=== PATIENT | female | born 1955 | race Caucasian/White ===

== ENCOUNTER → 2017-05-26 | Outpatient (CLI) | payer BC, OTHER ==
--- NOTE | 2017-05-27 11:12 | MM ---
Reason for exam: screening (asymptomatic). Last mammogram was performed 1 year ago. History: Patient is postmenopausal. Family history of breast cancer in mother at age 82 and breast cancer in grandmother at age 75. Physical Findings: A clinical breast exam by your physician is recommended on an annual basis and results should be correlated with mammographic findings. MG Screening Mammo w CAD Bilateral CC and MLO view(s) were taken. Prior study comparison: May 19, 2016, bilateral MG screening mammo w CAD. May 13, 2015, right breast MG 3d work up w/cad RT. The breast tissue is heterogeneously dense. This may lower the sensitivity of mammography. There is no discrete abnormality. No significant changes when compared with prior studies. ASSESSMENT: Negative, BI-RAD 1 RECOMMENDATION: Routine screening mammogram of both breasts in 1 year.
== END | disposition home or self-care (01) ==
LOC: RADMAMWWP 13:22
PROVIDERS: ATTEND Obstetrics & Gynecology
DX: Z12.31 Encounter for screening mammogram for malignant neoplasm of breast (principal)
CPT/HCPCS: 77067

== ENCOUNTER → 2018-11-14 | Outpatient (CLI) | payer MEDICARE ==
--- NOTE | 2018-11-16 10:02 | MM ---
Reason for exam: screening (asymptomatic). Last mammogram was performed 1 year and 6 months ago. History: Patient is postmenopausal. Family history of breast cancer in mother at age 82 and breast cancer in grandmother at age 75. Physical Findings: A clinical breast exam by your physician is recommended on an annual basis and results should be correlated with mammographic findings. MG Screening Mammo w CAD Bilateral CC and MLO view(s) were taken. Prior study comparison: May 26, 2017, bilateral MG screening mammo w CAD. May 19, 2016, bilateral MG screening mammo w CAD. Focal asymmetry, stable, right upper outer quadrant middle position. No significant changes when compared with prior studies. ASSESSMENT: Benign, BI-RAD 2 RECOMMENDATION: Routine screening mammogram of both breasts in 1 year.
== END | disposition home or self-care (01) ==
LOC: RADMAMWWP 16:18
PROVIDERS: ATTEND Obstetrics & Gynecology
DX: Z12.31 Encounter for screening mammogram for malignant neoplasm of breast (principal)
CPT/HCPCS: 77067

== ENCOUNTER → 2019-01-01 | Outpatient (CLI) | payer MEDICARE ==
--- NOTE | 2019-01-01 15:27 | US ---
EXAMINATION TYPE: US kidneys/renal and bladder DATE OF EXAM: 01/01/2019 COMPARISON: No previous CLINICAL HISTORY: R94.4 decreased GFR. Decreased GFR, patient states no other symptoms EXAM MEASUREMENTS: Right Kidney: 9.6 x 4.9 x 5.4 cm Left Kidney: 9.4 x 4.7 x 4.9 cm Right Kidney: 0.4cm echogenic focus inferior pole Left Kidney: fullness of renal pelvis, 1.7cm cystic area inferior pole, 0.4cm mid pole Bladder: wnl Bilateral Jets seen: yes IMPRESSION: 1. Nonobstructing right-sided nephrolithiasis. 2. Renal cystic changes left kidney. Nonspecific fullness of the left renal pelvis.
== END | disposition home or self-care (01) ==
LOC: RADUSWWP 14:50
PROVIDERS: ATTEND Family Medicine
DX: N20.0 Calculus of kidney (principal); N28.1 Cyst of kidney, acquired
CPT/HCPCS: 76770

== ENCOUNTER → 2020-10-22 | Outpatient (CLI) | payer MEDICARE ==
--- NOTE | 2020-10-22 12:01 | BD ---
EXAMINATION TYPE: Axial Bone Density DATE OF EXAM: 10/22/2020 COMPARISON: 11/30/2005 bone scan report. CLINICAL HISTORY: Postmenopausal female. Disorder of bone. Height: 61.2 IN Weight: 153 LBS FRAX RISK QUESTIONS: Family History (Parent hip fracture): YES MOTHER RISK FACTORS HISTORY OF: Family History of Osteoporosis: YES MOTHER Active: YES Postmenopausal woman: AGE 56 MEDICATIONS: Osteoporosis Medications: NOT NOW Which medication: Prolia How Long: TOOK FOR 5 YEARS Additional Medications: CALCIUM, VIT D, BIOTIN, CENTRUM SILVER, LIPITOR, DEXILANT, EXAM MEASUREMENTS: Bone mineral densitometry was performed using the [employer] System. Bone mineral density as measured about the Lumbar spine is: ----- L1-L4(G/cm2): 0.889 T Score Values are as follows: ----- L2: -2.7 ----- L3: -3.0 ----- L4: -2.3 ----- L1-L4: -2.4 Bone mineral density has: Decreased -8.3% since study of: 11/30/2005 Bone mineral density about the R hip (g/cm2): 0.832 Bone mineral density about the L hip (g/cm2): 0.755 T Score values are as follows: -----R Neck: -1.5 -----L Neck: -2.0 -----R Total: -0.9 -----L Total: -1.1 Bone mineral density has: Decreased -3.3% since study of: 11/30/2005 IMPRESSION: Osteoporosis (T Score less than -2.5) now present. There is increased fracture risk and therapy is usually indicated based on age. Re-Screen 1-2 years. NOTE: T-SCORE=SD OF THE YOUNG ADULT MEAN.
== END | disposition home or self-care (01) ==
LOC: RADBDWWP 09:09
PROVIDERS: ATTEND Obstetrics & Gynecology
DX: Z13.820 Encounter for screening for osteoporosis (principal); M81.0 Age-related osteoporosis without current pathological fracture; M85.89 Other specified disorders of bone density and structure, multiple sites; Z78.0 Asymptomatic menopausal state; Z82.62 Family history of osteoporosis
CPT/HCPCS: 77080

== ENCOUNTER → 2020-10-22 | Outpatient (CLI) | payer MEDICARE ==
--- NOTE | 2020-10-23 12:17 | MM ---
Reason for exam: screening (asymptomatic). Last mammogram was performed 1 year and 11 months ago. History: Patient is postmenopausal. Family history of breast cancer in mother at age 82 and breast cancer in grandmother at age 75. Physical Findings: A clinical breast exam by your physician is recommended on an annual basis and results should be correlated with mammographic findings. MG 3D Screening Mammo W/Cad Bilateral CC and MLO view(s) were taken. Prior study comparison: November 14, 2018, bilateral MG screening mammo w CAD. May 26, 2017, bilateral MG screening mammo w CAD. There are scattered fibroglandular densities. No significant changes when compared with prior studies. ASSESSMENT: Benign, BI-RAD 2 RECOMMENDATION: Routine screening mammogram of both breasts in 1 year.
== END | disposition home or self-care (01) ==
LOC: RADMAMWWP 09:06
PROVIDERS: ATTEND Family Medicine
DX: Z12.31 Encounter for screening mammogram for malignant neoplasm of breast (principal); Z78.0 Asymptomatic menopausal state; Z80.3 Family history of malignant neoplasm of breast
CPT/HCPCS: 77063; 77067

== ENCOUNTER → 2022-01-05 | Outpatient (CLI) | payer MEDICARE ==
--- NOTE | 2022-01-05 12:56 | MM ---
Reason for Exam: Clinical finding. Last mammogram was performed 1 year(s) and 2 month(s) ago. Indicated Problems: Lump or thickening of the right side for 2 Year(s). Patient History: Menarche at age 9. First Full-Term at age 16. Postmenopausal. Patient has history of breast feeding. Maternal grandmother had breast cancer, age 75. Mother had breast cancer, age 82. Risk Values: Taylor 5 year model risk: 3.5%. NCI Lifetime model risk: 11.0%. Prior Study Comparison: 05/13/2015 Right Diagnostic Mammogram, [facility]. 05/19/2016 Bilateral Screening Mammogram, [facility]. 05/26/2017 Bilateral Screening Mammogram, [facility]. 11/14/2018 Bilateral Screening Mammogram, [facility]. 10/22/2020 Bilateral Screening Mammogram, [facility]. Tissue Density: There are scattered fibroglandular densities. Findings: Analyzed By CAD. No evidence for mass or distortion. At the site of clinical concern there are a few small subcentimeter lymph nodes noted. Correlate clinically. If symptoms persist consider ultrasound. Overall Assessment: Benign, BI-RAD 2 Management: Screening Mammogram of both breasts in 1 year. A clinical breast exam by your physician is recommended on an annual basis and results should be correlated with mammographic findings. This exam should not preclude additional follow-up of suspicious palpable abnormalities. Results were given to the patient verbally at the time of exam. Electronically signed and approved by: Sampson Fernandez M.D. Radiologis
== END | disposition home or self-care (01) ==
LOC: RADMAMWWP 10:46
PROVIDERS: ATTEND Obstetrics & Gynecology
DX: N63.0 Unspecified lump in unspecified breast (principal); Z78.0 Asymptomatic menopausal state; Z80.3 Family history of malignant neoplasm of breast
CPT/HCPCS: 77066; G0279; 77062

== ENCOUNTER 2022-10-05 09:22 | Observation (INO) | payer MEDICARE ==
[2022-09-30 14:54] VITALS: BMI 29.2
[~2022-10-05 09:22] MED LIST: ACETAMINOPHEN TAB 500 MG TAB PO PRN; GABAPENTIN 300 MG CAP PO PRN; HYDROmorphone 0.5 MG/0.5 ML SYRINGE IVP PRN; MAGNESIUM HYDROXIDE 2,400 MG/10 ML CUP PO PRN; MELOXICAM 7.5 MG TAB PO PRN; NALOXONE 0.4 MG/ML 1 ML VIAL IV PRN; ONDANSETRON 4 MG/2 ML VIAL IVP PRN; TRANEXAMIC ACID IN NACL,ISO-OS 1,000 MG in SALINE 1 100ML.BAG IVPB PRN
[2022-10-05] MEDS ORDERED: ONDANSETRON 4 MG/2 ML VIAL IVP ONE (09:43)
[2022-10-05] MEDS ORDERED: MIDAZOLAM 2 MG/2 ML VIAL IV PRN (09:43)
[2022-10-05] MEDS ORDERED: DEXAMETHASONE SOD PHOSPHATE 4 MG/ML 1 ML VIAL IV ONE (09:43)
[2022-10-05] MEDS ORDERED: LIDOCAINE 1% (10MG/ML) FOR IV START INTRADERMA PRN (09:43)
[2022-10-05] MEDS: LACTATED RINGERS 1,000 ML IV SCH (10:00)
[2022-10-05] MEDS ORDERED: ROPIVACAINE 5 MG/ML 30 ML VIAL MISCELLANE ONE ×2 (10:30→12:25)
[2022-10-05] MEDS ORDERED: fentaNYL (PF) 50 MCG/ML 2 ML AMP IVP ONE (10:36)
[2022-10-05] MEDS ORDERED: ROCURONIUM 10 MG/ML (5 ML VIAL) IV ONE (11:25)
[2022-10-05] MEDS ORDERED: HYDROmorphone (PF) 1 MG/ML ONE (11:25)
[2022-10-05] MEDS ORDERED: PROPOFOL 10 MG/ML 20 ML VIAL IV ONE (11:25)
[2022-10-05] MEDS ORDERED: MIDAZOLAM 2 MG/2 ML VIAL ONE (11:25)
[2022-10-05] MEDS ORDERED: NEOSTIGMINE 1 MG/ML 10 ML VIAL ONE (11:25)
[2022-10-05] MEDS ORDERED: SUCCINYLCHOLINE CHLORIDE 200 MG/10 ML VIAL IV ONE (11:25)
[2022-10-05] MEDS ORDERED: TRANEXAMIC ACID IN NACL,ISO-OS 1,000 MG/100 ML BAG ONE (11:25)
[2022-10-05] MEDS ORDERED: fentaNYL (PF) 50 MCG/ML 2 ML AMP ONE (11:25)
[2022-10-05] MEDS ORDERED: GLYCOPYRROLATE 0.2 MG/ML 2 ML VIAL ONE (11:25)
[2022-10-05] MEDS ORDERED: LIDOCAINE 2% INJ 20 MG/ML (2 ML VIAL) ONE (11:25)
--- NOTE | 2022-10-05 11:50 | P.ANPRN ---
Procedure Note - Anesthesia - Nerve Block Performed Right Max Time Out Performed: Yes (10:35) Date of Procedure: 10/05/22 Procedure Start Time: :35 Procedure Stop Time: : Location of Patient: PreOp Indication: Acute Post-Operative Pain, Requested by Surgeon (Dr Steve Hudson) Sedation Type: Sedate with meaningful contact maintained Preparation: Sterile Prep Position: Supine Catheter: None Needle Types: Pajunk Needle Gauge: 21 Ultrasound used to visualize needle placement: Yes Ultrasound used to observe medication spread: Yes Injectate: 0.5% Ropivacaine (see comment for volume) (20cc + 5cc PF Normal saline) Blood Aspirated: No Pain Paresthesia on Injection Noted: No Resistance on Injection: Normal Image Stored and Saved: Yes Events: Uneventful and Well Tolerated
[2022-10-05] MEDS ORDERED: ceFAZolin 1,000 MG in SODIUM CHLORIDE 0.9% 1,000 ML IRRIGATION ONE (11:51)
[2022-10-05] MEDS ORDERED: LACTATED RINGERS 1,000 ML IV ONE ×2 (12:25→14:16)
--- NOTE | 2022-10-05 12:31 | P.OP ---
Date of Procedure: 10/05/22 Preoperative Diagnosis: Severe osteoarthritis right hip Postoperative Diagnosis: Severe osteoarthritis right hip Procedure(s) Performed: Right total hip arthroplasty with a direct anterior approach Implants: [employer] Polarstem standard size 3 with a collar [employer] R3, 3 hole hemispherical acetabular shell, 52 mm [employer] Reflection 6.5 mm cancellus screw, 20 mm 2 [employer] R3, XLPE 20 acetabular liner [employer] Oxinium femoral head 36 m, +0 All components were press-fit. The articulation is Oxinium on polyethylene. Anesthesia: GETA Surgeon: Steve Hudson Commodity Analyst #1: Edith Serrato Estimated Blood Loss (ml): 350 Pathology: other (Femoral head) Condition: stable Disposition: PACU Indications for Procedure: After failure of conservative treatment we discussed the surgical and nonsurgical treatment options at length. Patient wishes to proceed with a total hip arthroplasty with a direct anterior approach. Complications specific to this procedure were discussed at length, including but not limited to infection, leg length discrepancy, dislocation, nerve injury, and fracture. Covid-19 was also discussed at length with the patient, and they are aware of the current po licies and procedures. The patient was given the option of delaying surgery, but they elect to proceed knowing these risks. Patient is aware of all these complications and informed consent was obtained Operative Findings: The operative findings are consistent with severe osteoarthritis of the right hip Description of Procedure: The patient was seen and evaluated in the preoperative area and the consent was reviewed. The operative site was marked with a skin marker. The patient verified the procedure and operative site. A LIBERTAD block was placed by anesthesia in the preoperative area. The patient was then brought to the operating room and given preoperative antibiotics intravenously. 1 g of Tranexamic acid was also given intravenously. A general anesthetic was administered by the anesthesia department. The patient was then placed on the Burleson table with the bony prominences well-padded. The hip area was then prepped with a ChloraPrep solution and draped in the usual sterile fashion. A universal timeout was then performed, which confirmed the patient's name, surgical site, ALLERGIES, and procedure being performed on the consent. Next the incision site was located at 1 cm distal and 4 cm lateral to the anterior superior iliac spine. The skin and subcutaneous tissues were sharply incised. Incision was carefully dissected down to the fascia overlying the tensor fascia hanna muscle. This fascia was then incised in line with the muscle fibers. Care was taken to stay laterally in order to avoid injuring the lateral femoral cutaneous nerve. Next, using blunt finger dissection, the tensor fascia hanna muscle was dissected off its investing fascia. The muscle was then carefully retracted laterally with a cobra retractor over the lateral neck of the femur. Next, the circumflex vessels were identified and cauterized using the Aquamantis device. The anterior hip capsule was then exposed. The capsule was then opened and an inverted T fashion. The retractors were then placed intracapsularly. The retractors were maintained intracapsular throughout the procedure. The proximal femur was then visualized. Fluoroscopic x-rays were then taken in order to evaluate the preoperative leg lengths. A small amount of traction was placed on the leg. The femoral neck was then osteotomized at the appropriate level above the lesser trochanter. A small wedge of bone was then removed from the remaining femoral head. Next, using a corkscrew the femoral head was removed from the acetabulum. On gross visual inspection, the femoral head had complete loss of articular cartilage and multiple periarticular osteophytes. The femoral head was then measured. Attention was then turned to the acetabulum. The acetabulum was exposed and any remaining labrum was excised. Sequential reaming of the acetabulum was performed using fluoroscopic guidance until there was a good bed of bleeding cancellus bone. When the appropriate size was reached, a trial was then placed. The position and fit of the trial was checked with fluoroscopy. The trial was then removed. Then, using fluoroscopic guidance, the final implant was impacted at 20 of anteversion and 40 of abduction, and fully seated in the acetabulum. 2 screws were then placed in the acetabulum. Again fluoroscopy was used to check position of the screws. Next, the liner was then impacted, with a 20 elevated liner located in the anterior superior quadrant. Component locking was confirmed. Attention was then directed to the femur. With the aid of the Burleson table, the femur was externally rotated to approximately 130, extended, and adducted under the opposite leg. A side hook was then placed under the proximal femur, and the side hook elevator was used to elevate the proximal femur while releasing the capsule. Retractors were then placed. A capsular release was performed, as well as a release of the conjoined tendon, which afforded excellent visualization of the proximal femur. Next, a box osteotome was used to lateralize the proximal femur. A merchandise clerk was then used to locate the femoral canal. Sequential broaching was then performed with appropriate size which afforded excellent fixation in the proximal femur. A trial was then placed with appropriate head and neck, and the hip was gently reduced with the aid of the Burleson table. Fluoroscopy was then used to check position of the components, as well as to evaluate the leg lengths and offset. The leg lengths and offset were measured as closely as possible to ensure stability of the hip. The hip was then gently dislocated and the trials were then removed. Final implants were then impacted and the hip was again reduced. Final fluoroscopic x-rays confirmed that the components were in anatomic position. The leg lengths and offset were measured and were found to coincide with the trial measurements. The hip was also taken through range of motion, and found to be stable. The hip was then copiously irrigated with antibiotic solution with pulsatile lavage. The hip was then irrigated with Irrisept solution. The soft tissues were then injected with a ropivacaine solution. A second dose of 1 g of Tranexamic acid was also given intravenously. The fascia was then closed with 2-0 strata fix suture. The subcutaneous tissue was closed with 3-0 Vicryl. The subcuticular tissue was closed with 3-0 strata fix suture. The skin was then closed with Exofin skin glue. After the glue and dried, and Optifoam silver impregnated dressing was applied. The patient was then transferred to the recovery room in stable condition. The therapy assistant GEETHA Gutierrez was required due to the complexity of surgery, and the need for skilled neurosurgical nurse for positioning, draping, exposure, retraction, and closure of the wound.
--- NOTE | 2022-10-05 12:44 | XR ---
EXAMINATION TYPE: XR Hip Limited RT DATE OF EXAM: 10/05/2022 COMPARISON: NONE HISTORY: Postop TECHNIQUE: One view submitted. FINDINGS: There is postsurgical change in near anatomic alignment. There is soft tissue edema and emphysema. IMPRESSION: 1. Postoperative change. Appears in near-anatomic alignment.
[2022-10-05] MEDS: HYDROmorphone 0.5 MG/0.5 ML SYRINGE IVP PRN ×2 (13:17→13:38)
--- NOTE | 2022-10-05 14:06 | XR ---
EXAMINATION TYPE: XR Hip Limited RT DATE OF EXAM: 10/05/2022 COMPARISON: None HISTORY: Right hip surgery TECHNIQUE: AP right hip FINDINGS: There is no placement of a right femoral prosthesis with acetabular component. No acute fra ctures are evident. Postsurgical soft tissue changes are present. IMPRESSION: 1. No acute fractures post right hip replacement
[2022-10-05] MEDS: HYDROcodone/APAP 7.5-325MG 1 EACH TAB PO PRN ×2 (14:43→18:35)
--- NOTE | 2022-10-05 14:45 | FL ---
EXAMINATION TYPE: FL guidance operating room DATE OF EXAM: 10/05/2022 HISTORY: Fluoroscopy time Total dose area product (DAP) in uGy*m?, mGy*cm? (or similar): 2.2733 IMPRESSION: 1. Fluoroscopy time.
[2022-10-05] MEDS ORDERED: PANTOPRAZOLE 40 MG TABLET PO STA (16:57)
[2022-10-05] MEDS: SODIUM CHLORIDE 0.9% 1,000 ML IV SCH ×2 (19:26→20:13)
[2022-10-05] MEDS: ASPIRIN 325 MG TAB PO SCH (20:14)
[2022-10-05] MEDS ORDERED: SENNOSIDES-DOCUSATE SODIUM 1 EACH TAB PO SCH (21:00)
[2022-10-06] MEDS: HYDROcodone/APAP 7.5-325MG 1 EACH TAB PO PRN ×2 (02:45→08:50)
[2022-10-06] MEDS: ASPIRIN 325 MG TAB PO SCH (07:46)
[2022-10-06 08:23] VITALS: BP 127/65; PULSE 85; RESP 17; TEMP 98.9
[2022-10-06 09:29] LABS: Basophils # (A) 0.02 X 10*3/uL (0.00-0.10); Basophils % (A) 0.3 %; Eosinophils # (A) 0.07 X 10*3/uL (0.04-0.35); Eosinophils % (A) 0.9 %; HCT 31.9 % (37.2-46.3); HGB 10.7 g/dL (12.0-15.0); Immature Grans, Automated 0.3 %; Lymphocytes # (A) 1.92 X 10*3/uL (0.90-5.00); Lymphocytes % (A) 24.4 %; MCHC 33.5 g/dL (32.0-37.0); MCV 92.5 fL (80.0-97.0); Mean Platelet Volume 10.5 fL (9.5-12.2); Monocytes # (A) 0.86 X 10*3/uL (0.20-1.00); Monocytes % (A) 10.9 %; NRBC Per 100 WBC 0 /100 WBCS (0.0-0.0); Neutrophils # (A) 4.97 X 10*3/uL (1.80-7.70); Neutrophils % (A) 63.2 %; Platelet Count 159 X 10*3/uL (140-440); RBC 3.45 X 10*6/uL (4.10-5.20); RDW 12.2 % (11.5-14.5); WBC 7.86 X 10*3/uL (4.50-10.00)
--- NOTE | 2022-10-06 09:32 | P.DS ---
Providers Expected date of discharge: 10/06/22 Attending physician: Steve Hudson Consults: 10/05/22 17:25 Consult Physician Routine Consulting Provider: Alvaro Chandler Consult Reason/Comments: medical management Do you want consulting provider notified?: Yes Primary care physician: Alvaro Chandler - Discharge Diagnosis(es) (1) Status post right hip replacement Current Visit: Yes Status: Acute (2) Osteoarthritis of right hip Current Visit: Yes Status: Acute Hospital Course: This is a 67 -year-old female with a known history of degenerative arthritis of the right hip. The patient presented to the orthopedic office for evaluation and treatment. After discussion and consideration the patient elects to proceed with a total hip arthroplasty. The patient was seen preoperatively by her primary care physician and cleared for surgery. The patient was admitted to [facility] on 10/05/2022 for a right total hip arthroplasty. The procedure was performed without complication or sequelae. The patient is doing well postoperatively. Labs and vital signs are stable the day of discharge. On the day of discharge the patient's hip incision is healing well. There is minimal erythema. There is no drainage noted at this time. There is minimal soft tissue swelling to the hip and thigh. The patient has full foot and ankle motion without difficulty or pain. Neurovascular status to the right lower extremity is intact. The patient will be discharged home today in stable condition. Pertinent Studies: Laboratory Tests 10/06/22 04:40 WBC 7.86 RBC 3.45 L Hgb 10.7 L Hct 31.9 L Patient Condition at Discharge: Stable Plan - Discharge Summary Discharge Rx Participant: Yes New Discharge Prescriptions: New Aspirin 325 mg PO BID #60 tab HYDROcodone/APAP 7.5-325MG [[place] 7.5-325] 1 - 2 tab PO Q6H PRN #32 tab PRN Reason: Pain Sennosides [Senokot] 2 tab PO DAILY PRN #60 tablet PRN Reason: Constipation Ondansetron Odt [Zofran Odt] 1 tab PO Q8HR PRN #10 tab PRN Reason: Nausea No Action Atorvastatin [Lipitor] 10 mg PO DAILY Dexlansoprazole [Dexilant] 60 mg PO DAILY Acetaminophen [Tylenol Extra Strength] 500 mg PO Q8HR PRN PRN Reason: Pain Discharge Medication List Acetaminophen [Tylenol Extra Strength] 500 mg PO Q8HR PRN 09/30/22 [History] Atorvastatin [Lipitor] 10 mg PO DAILY 09/30/22 [History] Dexlansoprazole [Dexilant] 60 mg PO DAILY 09/30/22 [History] Aspirin 325 mg PO BID #60 tab 10/05/22 [Rx] HYDROcodone/APAP 7.5-325MG [[place] 7.5-325] 1 - 2 tab PO Q6H PRN #32 tab 10/05/22 [Rx] Ondansetron Odt [Zofran Odt] 1 tab PO Q8HR PRN #10 tab 10/05/22 [Rx] Sennosides [Senokot] 2 tab PO DAILY PRN #60 tablet 10/05/22 [Rx] Follow up Appointment(s)/Referral(s): Alvaro Chandler DO [Primary Care Provider] - 10/08/22 10:00 am [facility], [NON-STAFF] - As Needed Steve Hudson DO [Doctor of Osteopathic Medicine] - 10/15/22 9:45 am (With Edith) Patient Instructions/Handouts: *Surgery [facility] - (Anesthesia) Discharge Instructions Outpatient Surgery, Total Hip Replacement (GEN) Activity/Diet/Wound Care/Special Instructions: Weightbearing as tolerated with walker. Leave dressing intact. Dressing may be removed by home care nurse or by patient in 7 days. Then change dressing twice daily until follow up. May shower with initial dressing intact and after removal. If dressing become saturated, please remove. Please take aspirin 325mg twice daily for 30 days to prevent blood clots. Recommend use of compression stockings daily until follow up to help prevent swelling and blood clots. May remove at night before sleeping. Please follow[facility]up with [facility] 2 weeks and call with any questions or concerns, . Discharge Disposition: HOME WITH HOME HEALTH SERVICES
--- NOTE | 2022-10-06 11:05 | P.CONS ---
History of Present Illness - Reason for Consult Consult date: 10/06/22 Medical management gastroesophageal reflux disease Requesting physician: Steve Hudson - Chief Complaint Right hip osteoarthritis, status post surgical repair - History of Present Illness This is a pleasant 67-year-old female with past medical history significant for severe osteoarthritis of right hip, gastroesophageal reflux disease, hiatal hernia, hyperlipidemia, former nicotine dependence and multiple other medical issues, status post anterior right total hip arthroplasty. Tolerated procedure well. Reports block wore off last night. Positive pain, better controlled this morning. Denies nausea vomiting or diarrhea. Passing flatus. Has been up to the bathroom, tolerated exertion well. PT pending. Denies chest pain, palpitations or shortness of breath. Denies lightheadedness, dizziness or focal deficits. Afebrile, vital signs stable, maintaining O2 sats in the mid 90s on room air. Using incentive spirometer. Review of Systems Constitutional: Denied any fatigue denied any fever. Cardio vascular: denied any chest pain, palpitations Gastrointestinal denied any nausea vomiting Pulmonary: Denied any shortness of breath cough Neurologic denied any new focal deficits ROS Statement: Those systems with pertinent positive or pertinent negative responses have been documented in the HPI. ROS Other: All systems not noted in ROS Statement are negative. Past Medical History Past Medical History: Hyperlipidemia, Osteoarthritis (OA) Additional Past Medical History / Comment(s): HIATAL HERNIA History of Any Multi-Drug Resistant Organisms: MRSA Year Discovered:: 2012 MDRO Source:: LOW BACK LOWER Past Surgical History: Orthopedic Surgery Additional Past Surgical History / Comment(s): RT SHOULDER SX. COLONOSOCPY Past Anesthesia/Blood Transfusion Reactions: No Reported Reaction Past Psychological History: No Psychological Hx Reported Smoking Status: Former smoker Past Alcohol Use History: Occasional Additional Past Alcohol Use History / Comment(s): QUIT SMOKING 1989 Past Drug Use History: None Reported - Past Family History Mother Family Medical History: No Reported History Medications and Allergies Home Medications Medication Instructions Recorded Confirmed Type Acetaminophen [Tylenol Extra 500 mg PO Q8HR PRN 09/30/22 10/05/22 History Strength] Atorvastatin [Lipitor] 10 mg PO DAILY 09/30/22 10/05/22 History Dexlansoprazole [Dexilant] 60 mg PO DAILY 09/30/22 10/05/22 History Aspirin 325 mg PO BID #60 tab 10/05/22 Rx HYDROcodone/APAP 7.5-325MG [[place] 1 - 2 tab PO Q6H PRN #32 tab 10/05/22 Rx 7.5-325] Ondansetron Odt [Zofran Odt] 1 tab PO Q8HR PRN #10 tab 10/05/22 Rx Sennosides [Senokot] 2 tab PO DAILY PRN #60 tablet 10/05/22 Rx Allergies Allergy/AdvReac Type Severity Reaction Status Date / Time No Known Allergies Allergy Verified 10/05/22 09:59 Physical Exam Vitals: Vital Signs Temp Pulse Pulse Resp BP Pulse Ox FiO2 10/06/22 08:00 98.9 F 85 17 127/65 95 10/06/22 07:46 17 10/06/22 01:04 98.5 F 83 16 124/73 92 L 10/05/22 19:40 97.4 F L 81 81 16 149/84 97 10/05/22 18:57 93 16 157/68 93 L 10/05/22 18:09 80 16 127/75 94 L 10/05/22 17:14 96 16 147/83 96 10/05/22 16:37 82 16 135/75 96 10/05/22 16:12 65 16 149/80 95 10/05/22 15:45 59 L 16 119/68 97 10/05/22 15:21 56 L 16 154/92 93 L 10/05/22 15:06 76 16 141/68 96 10/05/22 14:51 56 L 16 146/83 96 10/05/22 14:36 74 16 134/67 90 L 10/05/22 14:21 62 16 147/83 97 10/05/22 14:11 57 L 16 155/68 100 2 10/05/22 13:56 66 16 151/66 99 10/05/22 13:41 64 16 146/65 99 10/05/22 13:26 61 16 124/58 100 10/05/22 13:11 55 L 16 155/63 100 10/05/22 12:56 98.2 F 60 14 153/68 100 Intake and Output 10/05/22 10/06/22 10/06/22 22:59 06:59 14:59 Other: Voiding Method Toilet # Voids 2 Weight 74.3 kg PHYSICAL EXAM: VITAL SIGNS: As above GENERAL: Sitting up in bed, no acute distress HEENT: Normocephalic, atraumatic, Conjunctivae normal. eyes normal. MMM. NECK: Supple, No JVD. CARDIOVASCULAR: S1, S2 regular.No murmur RESPIRATION: Unlabored, bilateral air entry equal , bilateral bases diminished. ABDOMEN: Soft, nondistended, nontender . No guarding. no masses palpable. No hepatosplenomegaly.Bowel sounds heard. LEGS: Right lower extremity dressing clean dry and intact, mild edema, no clubbing, no cyanosis, no calf tenderness, positive DP pulse. PSYCHIATRY: Alert and oriented X3, mood and affect normal. NERVOUS SYSTEM: Cranial N 2-12 grossly normal. Moves all 4 limbs. No focal deficits. Strength and sensation grossly intact. Skin: Warm and dry, no rash Results CBC & Chem 7: 10/06/22 04:40 Labs: Abnormal Lab Results - Last 24 Hours (Table) 10/06/22 Range/Units 04:40 RBC 3.45 L (4.10-5.20) X 10*6/uL Hgb 10.7 L (12.0-15.0) g/dL Hct 31.9 L (37.2-46.3) % Assessment and Plan Assessment: Severe osteoarthritis right hip, failed conservative treatment, status post right total hip arthroplasty, direct anterior approach Postoperative atelectasis, expected outcome, incentive spirometer reinforced Gastroesophageal reflux disease Hyperlipidemia Former nicotine dependence Obesity, BMI 30 Plan: Continue on current medication regime ,monitoring and symptomatic treat ment. Significant clinical improvement. PT pending. Aggressive pulmonary toileting with incentive spirometer reinforced. Medically cleared for discharge. Follow-up with PCP, Dr. Chandler in 1 week. Thank you for the consult Dr. Hudson. The impression and plan of care has been dictated as directed. : I performed a history and examination of this patient, discussed the same with the dictator. I agree with the dictator's note ,documented as a scribe. Any additional findings or plans will be noted.
[2022-10-06] MEDS: LACTATED RINGERS 1,000 ML IV SCH (11:38)
== END 2022-10-06 13:38 | disposition home health service (06) ==
LOC: OR 09:22 → 4SSUR 09:23 → OR 10-06 13:38
PROVIDERS: ADMIT Orthopaedic Surgery; ATTEND Orthopaedic Surgery
DX: M16.11 Unilateral primary osteoarthritis, right hip (principal); E78.5 Hyperlipidemia, unspecified; K21.9 Gastro-esophageal reflux disease without esophagitis; K44.9 Diaphragmatic hernia without obstruction or gangrene; F10.20 Alcohol dependence, uncomplicated; Z87.891 Personal history of nicotine dependence; Z79.1 Long term (current) use of non-steroidal anti-inflammatories (NSAID); Z79.899 Other long term (current) drug therapy
CPT/HCPCS: 27130; 97162; 97535; 97165; 64447; 86900; 86901; 85025; 86850; 88300; 73501; C1776; J2250; J0330; J1100; J2710; J0690 ×2; J2405; J3010; J1170 ×2; J2795; J2704; J2001

== ENCOUNTER → 2023-01-11 | Outpatient (CLI) | payer MEDICARE ==
--- NOTE | 2023-01-11 14:45 | MM ---
Reason for Exam: Clinical finding. Last screening mammogram was performed 12 month(s) ago. Patient History: Menarche at age 9. First Full-Term at age 16. Postmenopausal. Patient has history of breast feeding. Maternal grandmother had breast cancer, age 75. Mother had breast cancer, age 82. Risk Values: Taylor 5 year model risk: 3.5%. NCI Lifetime model risk: 10.6%. Prior Study Comparison: 05/26/2017 Bilateral Screening Mammogram, [facility]. 11/14/2018 Bilateral Screening Mammogram, [facility]. 10/22/2020 Bilateral Screening Mammogram, [facility]. 01/05/2022 Bilateral MG 3D diag mammo w/cad GLORIA, [facility]. Tissue Density: There are scattered fibroglandular densities. Findings: Analyzed By CAD. No evidence for mass or distortion. No suspicious calcifications. Overall Assessment: Negative, BI-RAD 1 Management: Screening Mammogram of both breasts in 1 year. . Results were given to the patient verbally at the time of exam. Patient should continue monthly self-breast exams. A clinical breast exam by your physician is recommended on an annual basis. This exam should not preclude additional follow-up of suspicious palpable abnormalities. Note on Taylor scores and lifetime risk: 1. A Taylor score greater than 3% is considered moderate risk. If this is the case, consider specialist referral to assess eligibility for a risk reducing agent. 2. If overall lifetime risk for the development of breast cancer is 20% or higher, the patient may qualify for future screening with alternating mammogram and breast MRI. Electronically signed and approved by: Sampson Fernandez M.D. Radiologis
--- NOTE | 2023-01-12 23:25 | BD ---
EXAMINATION TYPE: Axial Bone Density DATE OF EXAM: 01/11/2023 CLINICAL HISTORY: 67 years old Female. ICD-10 CODE: M8588 - OTHER DISORDER OF BONE Height: 61 Weight: 167.7 FRAX RISK QUESTIONS: Alcohol (3 or more units per day): no Family History (Parent hip fracture): no Glucocorticoids (More than 3mos): no History of Fracture in Adulthood: no Secondary Osteoporosis: 1. Type 1 Diabetes: no 2. Hyperthyroidism: no 3. Menopause before 45: no 4. Malnutrition: no 5. Chronic liver disease: no Rheumatoid Arthritis: no Current Tobacco Use: no RISK FACTORS HISTORY OF: Hip Fracture (Right/Left): no Spine Fracture: no History of Wrist Fracture: no Surgery to Spine/Hip(right/left)/Wrist (right/left):Rt Hip Replacement, 2022, Family History of Osteoporosis: mother Active: yes Diet low in dairy products/other sources of calcium: no Postmenopausal woman: yes Take estrogen and/or progesterone medications: no Lost more than 2 inches in height since high school: no Frequent falls: no Poor Health: no Hyperparathyroidism: no Adrenal Insufficiency: no MEDICATIONS: Prednisone or other steroids: no Thyroid Medications: no Osteoporosis Medications: no Additional Medications: Calcium with Vit D3, Biotin, Multi Vit., Cholesterol Meds, Reflux Meds, Additional History: EXAM MEASUREMENTS: Bone mineral densitometry was performed using the Lang-8 System. Bone mineral density as measured about the Lumbar spine is: ----- L1-L4(G/cm2): 0.848 T Score Values are as follows: ----- L1: -2.4 ----- L2: -3.2 ----- L3: -2.9 ----- L4: -2.8 ----- L1-L4: -2.8 Z Score Values are as follows: ----- L1: -1.1 ----- L2: -1.9 ----- L3: -1.6 ----- L4: -1.5 ----- L1-L4: -1.5 Bone mineral density has: Decreased -4.6 % since study of: 10/22/2020 Bone mineral density about the L hip (g/cm2): 0.829 T Score values are as follows: -----L Neck: -2.3 -----L Total: -1.4 Z Score values are as follows: -----L Neck: -0.69 -----L Total: -0.2 Bone mineral density has: decreased -5.0 % since study of: 10/22/2020 FRAX%s: The graph provided illustrates a 20.9% chance for a major osteoporotic fx and a 6.1% chance f or the hips probability for fx in 10 years time. IMPRESSION: Osteoporosis (T Score less than -2.5). There is increased fracture risk and therapy is usually indicated based on age. Re-Screen 1-2 years. NOTE: T-SCORE=SD OF THE YOUNG ADULT MEAN.
== END | disposition home or self-care (01) ==
LOC: RADMAMWWP 14:15
PROVIDERS: ATTEND Obstetrics & Gynecology
DX: N63.10 Unspecified lump in the right breast, unspecified quadrant (principal); M81.0 Age-related osteoporosis without current pathological fracture; M85.89 Other specified disorders of bone density and structure, multiple sites; Z78.0 Asymptomatic menopausal state; Z80.3 Family history of malignant neoplasm of breast
CPT/HCPCS: 77062; 77066; 77080

== ENCOUNTER 2024-02-24 08:35 | Day surgery (SDC) | payer MEDICARE ==
[2024-02-21 12:51] VITALS: BMI 29.2
[2024-02-24 09:11] VITALS: TEMP 97
[2024-02-24] MEDS: LACTATED RINGERS 1,000 ML IV SCH (09:18)
[2024-02-24] MEDS: IV FLUID CONTINUATION 1,000 ML IV ONE (09:18)
[2024-02-24] MEDS ORDERED: LIDOCAINE 1% INJ 10MG/ML (20 ML MDV) ONE (09:47)
[2024-02-24] MEDS ORDERED: PROPOFOL 10 MG/ML 20 ML VIAL IV ONE (09:47)
--- NOTE | 2024-02-24 10:07 | P.PCN ---
Date of Procedure: 02/24/24 Procedure(s) Performed: BRIEF HISTORY: Patient is a 69-year-old, pleasant, white female as a part of evaluation of longstanding history of GERD.. PROCEDURE PERFORMED: Esophagogastroduodenoscopy with biopsy. PREOPERATIVE DIAGNOSIS: Longstanding history of GERD. IV sedation per anesthesia. PROCEDURE: After informed consent was obtained, the patient was brought into the endoscopy unit. IV sedation was administered by Anesthesia under continuous monitoring. Initially the Olympus GIF-140 video endoscope was inserted into the mouth. Esophagus intubated without any difficulty. It was gradually advanced into the stomach and duodenum and carefully examined. The bulb and the second part of the duodenum appeared normal. The scope at this time was withdrawn to the stomach, adequately insufflated with air, and upon careful examination, mucosa of the antrum, mild gastritis and biopsies were done for this area. Mucosa body, cardia and the fundus appeared normal. The scope was then withdrawn into the esophagus. Moderate size hiatal hernia noted. The GE junction was located at 33 cm from the incisors. A 3 mm tongue of Lawrence's appearing mucosa proximal to the GE junction that was biopsied. The rest of the esophagus appeared normal. There were no erosions or ulcerations seen and the patient tolerated the procedure well. IMPRESSION: 1. Moderate size hiatal hernia. 2. 3 mm possible Lawrence's appearing mucosa just proximal to the GE junction s/p biopsy 3. Mild antral gastritis. RECOMMENDATIONS: The findings of this examination were discussed with the patient as well as her family. Follow with the biopsy results. If the biopsy confirms the presence of Lawrence's esophagus, recommended repeat upper endoscopy in 3 years. She was advised to continue the Dexilant 60 mg daily and add Pepcid 20 mg at bedtime and follow antireflux measures.
[2024-02-24 10:15] VITALS: RESP 16
[2024-02-24 10:21] VITALS: BP 150/83; PULSE 68
== END 2024-02-24 10:43 | disposition home or self-care (01) ==
LOC: ORWHC2ENDO 08:35
PROVIDERS: ATTEND Internal Medicine Gastroenterology
DX: K21.9 Gastro-esophageal reflux disease without esophagitis
CPT/HCPCS: 43239; 88305